=== PATIENT | female | born 1995 ===

== ENCOUNTER → 2019-03-04 | Outpatient (CLI) | payer OTHER ==
[2019-03-04 12:32] LABS: Source, Urine Clean Catch
[2019-03-04 12:53] LABS: Bilirubin, Urine Neg (Neg); Blood, Urine 1+ (Neg); Glucose Qualitative, Urine Neg (Neg); Ketones, Urine 1+ (Neg); Leukocyte Esterase, Urine 3+ (Neg); Nitrite, Urine Neg (Neg); Protein, Urine 2+ (Neg); Specific Gravity, Urine 1.015 (1.003-1.022); Urobilinogen, Urine 1+ (Normal); pH, Urine 6.5 (5.0-8.0)
[2019-03-04 13:02] LABS: Color, Urine Yellow (P-Yellow)
[2019-03-04 13:03] LABS: Appearance, Urine Cloudy (Clear)
[2019-03-04 13:08] LABS: Bacteria Mod /hpf; Red Blood Cells, Urine 0-2 /hpf (0-2); Squamous Epithelial Cells Mod /hpf (Few); White Blood Cells, Urine 25-50 /hpf (0-5)
== END ==
LOC: LAB 12:30 → LAB SHORT 12:30
PROVIDERS: Registered Nurse Community Health
DX: Z34.91 Encounter for supervision of normal pregnancy, unspecified, first trimester (principal)
CPT/HCPCS: 81001; 87086

== ENCOUNTER → 2019-03-23 | Outpatient (CLI) | payer OTHER ==
[2019-03-24 20:06] LABS: CHLAMYDIA TRACHOMATIS, NAA Negative (Negative); NEISSERIA GONORRHOEAE, NAA Negative (Negative)
== END ==
LOC: LAB SHORT 11:23 → LAB 11:23
PROVIDERS: Registered Nurse Community Health
DX: Z11.3 Encounter for screening for infections with a predominantly sexual mode of transmission (principal)
CPT/HCPCS: 87491; 87591

== ENCOUNTER → 2019-07-12 | Outpatient (CLI) | payer OTHER ==
[~2019-07-12] MED LIST: PRENATAL TABLE1 EAC2
== END ==
LOC: LAB SHORT 14:26 → LAB 14:26
DX: Z34.93 Encounter for supervision of normal pregnancy, unspecified, third trimester (principal)
CPT/HCPCS: 87081; 87653

== ENCOUNTER 2019-08-03 18:02 | Inpatient (IN) | payer OTHER ==
[~2019-08-03] VITALS: Ht 170.2 cm; Wt 110.0 kg
[2019-08-03] MEDS ORDERED: PRENATAL TABLE1 EAC2 (18:47)
[2019-08-03 18:51] LABS: BASOPHILS ABSOLUTE AUTO 0.04 K/mm3 (0.00-0.23); BASOPHILS PERCENT AUTO 0 % (0-2); EOSINOPHILS ABSOLUTE AUTO 0.02 K/mm3 (0.00-0.68); EOSINOPHILS PERCENT AUTO 0 % (0-6); Hematocrit 38.4 % (33.0-51.0); Hemoglobin 13.2 g/dL (11.5-16.0); IMMATURE GRAN ABSOLUTE AUTO 0.08 K/mm3 (0.00-0.10); IMMATURE GRAN PERCENT AUTO 0 % (0-1); LYMPHOCYTES ABSOLUTE AUTO 4.66 K/mm3 (0.84-5.20); LYMPHOCYTES PERCENT AUTO 26 % (21-46); MONOCYTES ABSOLUTE AUTO 1.01 K/mm3 (0.16-1.47); MONOCYTES PERCENT AUTO 6 % (4-13); Mean Corpuscular HGB 30.4 pg (26.0-34.0); Mean Corpuscular HGB Conc 34.4 g/dL (31.5-36.5); Mean Corpuscular Volume 89 fL (80-100); Mean Platelet Volume 12.7 fL (9.1-12.4); NEUTROPHILS ABSOLUTE AUTO 12.05 K/mm3 (1.96-9.15); NEUTROPHILS PERCENT AUTO 68 % (41-73); Platelet Count 220 K/mm3 (150-400); RDW Coefficient Variation 14.2 % (11.7-14.2); RDW Standard Deviation 45.3 fL (35.1-46.3); Red Blood Cell Count 4.34 M/mm3 (3.80-5.20); White Blood Cell Count 17.86 K/mm3 (4.00-11.30)
[2019-08-04 05:35] LABS: BASOPHILS ABSOLUTE AUTO 0.04 K/mm3 (0.00-0.23); BASOPHILS PERCENT AUTO 0 % (0-2); EOSINOPHILS ABSOLUTE AUTO 0.01 K/mm3 (0.00-0.68); EOSINOPHILS PERCENT AUTO 0 % (0-6); Hematocrit 35.9 % (33.0-51.0); Hemoglobin 11.8 g/dL (11.5-16.0); IMMATURE GRAN ABSOLUTE AUTO 0.14 K/mm3 (0.00-0.10); IMMATURE GRAN PERCENT AUTO 1 % (0-1); LYMPHOCYTES ABSOLUTE AUTO 4.33 K/mm3 (0.84-5.20); LYMPHOCYTES PERCENT AUTO 24 % (21-46); MONOCYTES ABSOLUTE AUTO 1.06 K/mm3 (0.16-1.47); MONOCYTES PERCENT AUTO 6 % (4-13); Mean Corpuscular HGB 29.9 pg (26.0-34.0); Mean Corpuscular HGB Conc 32.9 g/dL (31.5-36.5); Mean Corpuscular Volume 91 fL (80-100); Mean Platelet Volume 12.6 fL (9.1-12.4); NEUTROPHILS ABSOLUTE AUTO 12.32 K/mm3 (1.96-9.15); NEUTROPHILS PERCENT AUTO 69 % (41-73); Platelet Count 168 K/mm3 (150-400); RDW Coefficient Variation 14.1 % (11.7-14.2); RDW Standard Deviation 46.3 fL (35.1-46.3); Red Blood Cell Count 3.95 M/mm3 (3.80-5.20)
--- NOTE | 2019-08-04 13:07 | NUR ---
REPORT TO SHAHRIAR KONG RN
--- NOTE | 2019-08-04 14:23 | NUR ---
discharge instructions at bedside, pt would like to go home when she can
--- NOTE | 2019-08-04 15:12 | NUR ---
CONSULT, HE IS NEARING 24 HOURS AND WANTING TO FEED. MOM QUIT BF AT 2 WEEKS WITH FIRST BABY DUE TO VERY LOW PRODUCTION. INSTRUCT TO INCREASE DEMAND ON HER BREASTS TO HELP GET MILK IN WELL, TO START PUMPING FOR 10-15 MINUTES AFTER EACH DAY BF SESSIONS WHEN SHE GETS HOME, UNTIL SHE IS ABLE TO PUMP 1-2 OZ PC. INSTRUCT/DEMO POSITIONING TO HELP OBTAIN A DEEPER ASYMETRIC LATCH AND FURTHER WIDEN THE LATCH UNTIL COMFORTABLE. INSTRUCT IN CHANGES TO EXPECT WITH BABY AND WITH FEEDINGS DURING THE FIRST WEEK AND REFERRED TO BF BROCHURE AND PAGE I8 OF BF BOOKLET FOR PHOTOS AND INFORMATION. LOVING WITH BABY.
--- NOTE | 2019-08-04 21:01 | NUR ---
DC NOTE PT DISCHARGE AND AMBULATED OFF UNIT INDPENDENTLY. VSS W/ GOOD PAIN CONTROL. CARING FOR SELF AND BABY APPROPRIATLY.
== END 2019-08-04 20:51 | disposition home or self-care (01) | DRG 807 ==
LOC: OBS 18:02 → BC 18:03 → OBS 18:14 → BC 18:16
PROVIDERS: ADMIT Registered Nurse Community Health
PROC: 10E0XZZ Delivery of Products of Conception, External Approach (ICD-10-PCS; principal; 2019-08-03)
PROC: 0KQM0ZZ Repair Perineum Muscle, Open Approach (ICD-10-PCS; 2019-08-03)
PROC: 10907ZC Drainage of Amniotic Fluid, Therapeutic from Products of Conception, Via Natural or Artificial Opening (ICD-10-PCS; 2019-08-03)
DX: O77.0 Labor and delivery complicated by meconium in amniotic fluid (principal); Z37.0 Single live birth; O70.1 Second degree perineal laceration during delivery; Z3A.39 39 weeks gestation of pregnancy; Z23 Encounter for immunization
CPT/HCPCS: 36415; 59025; 85025; 87210; 90471; 90707; 99213; A9270; J1885; J2210; J2590; J7120